=== PATIENT | female | born 1950 | race Caucasian/White ===

== ENCOUNTER 2016-09-21 08:43 | Outpatient (CLI) | payer OTHER ==
[2016-09-21] MEDS ORDERED: NALOXONE HCL 0.4 MG/ML INJ ONE (08:53)
[2016-09-21] MEDS ORDERED: PROMETHAZINE HCL 25 MG/ML INJ ONE (08:53)
[2016-09-21] MEDS ORDERED: MIDAZOLAM 2 MG/2 ML VIAL ONE (08:53)
[2016-09-21] MEDS ORDERED: FLUMAZENIL 0.5 MG/5 ML MDV IVP ONE (08:53)
[2016-09-21] MEDS ORDERED: fentaNYL 100 MCG/2 ML INJ ONE (08:54)
[2016-09-21] MEDS ORDERED: NA BICARBONATE 50 MEQ/50 ML VIAL ONE (09:07)
[2016-09-21] MEDS ORDERED: LIDOCAINE 1% 30 ML SDV ONE (09:07)
[2016-09-21 09:50] LABS: % IMMATURE GRANULYOCYTES 0.2 % (0.0-1.1); ABSOLUTE IMMATURE GRANULOCYTES 0.01 10^3/uL (0.00-0.10); ADD DIFF? NO; ADD MORPH? NO; ADD SCAN? NO; ATYPICAL LYMPHOCYTE FLAG 0 (0-99); FRAGMENT RBC FLAG 0 (0-99); HEMOGLOBIN 13.1 g/dL (12.6-16.3); LEFT SHIFT FLG 0 (0-99); LIPEMIA HEMOLYSIS FLAG 90 (0-99); MEAN CELL HEMOGLOBIN 31.9 pg (27.9-34.1); MEAN CELL HEMOGLOBIN CONCENTR. 34.5 g/dL (32.4-36.7); MEAN CELL VOLUME 92.5 fL (81.5-99.8); MEAN PLATELET VOLUME 10.1 fL (8.7-11.7); PLATELET CLUMPS FLAG 0 (0-99); PLATELET COUNT 213 10^3/uL (150-400); RED BLOOD CELL COUNT 4.11 10^6/uL (4.18-5.33); RED CELL DISTRIBUTION WIDTH 13.8 % (11.5-15.2)
[2016-09-21 09:59] LABS: INR 1.02 (0.83-1.16); PROTIME(PATIENT) 13.3 SEC (12.0-15.0)
[2016-09-21 10:00] LABS: APTT 31.4 SEC (23.0-38.0)
[2016-09-21 10:02] LABS: ALANINE AMINOTRANSFERASE 31 IU/L (9-52); ALKALINE PHOSPHATASE 37 IU/L (38-126); ANION GAP 11 mEq/L (8-16); ASPARTATE AMINOTRANSFERASE 19 IU/L (14-46); BILIRUBIN,TOTAL 1.9 mg/dL (0.1-1.4); CALCIUM 9.9 mg/dL (8.5-10.4); CARBON DIOXIDE 23 mEq/l (22-31); CHLORIDE 108 mEq/L (97-110); CREATININE 1.5 mg/dL (0.6-1.0); GLOMERULAR FILTRATION RATE 35; GLUCOSE 89 mg/dL (70-100); POTASSIUM 4.3 mEq/L (3.5-5.2); SODIUM 142 mEq/L (134-144); TOTAL PROTEIN 7.2 g/dL (6.3-8.2)
--- NOTE | 2016-09-21 11:50 | US ---
Ultrasound Guided Renal Transplant Biopsy 1038 hours History: Rising creatinine. History of renal transplant. Crosscutting Measure #226: Current tobacco user: no. Technique: Witnessed Consent: Witnessed informed consent was obtained after the risks, benefits, and alternativ es of ultrasound-guided renal transplant biopsy were explained to the patient and all questions were answered. The lower pole right lower quadrant transplant kidney was localized with ultrasound imaging. Consciou s sedation was utilized with a total of 0.5 mg of Versed and 75 mcg of fentanyl over 8 minutes (1056- 1104 hours). Following local anesthesia with 1% lidocaine, a 17-gauge coaxial needle was advanced wit h ultrasound guidance lower pole right lower quadrant transplant kidney. Following confirmation of go od position of the needle tip along the periphery of the mass, four 18-gauge core biopsy samples were obtained and submitted in formalin and Jhony's solution to pathology. The patient tolerated the pro cedure well. No immediate complications occurred. Impression: Successful ultrasound-guided core biopsy of lower pole right lower quadrant transplant ki dney renal parenchyma with specimens submitted in formalin and Jhony's solution to Pathology.
[2016-09-21] MEDS ORDERED: BACLOFEN 10 MG TAB PO ONE (12:30)
[2016-09-21 13:18] LABS: HEMATOCRIT 34.9 % (38.0-47.0); HEMOGLOBIN 12.1 g/dL (12.6-16.3)
[2016-09-21] MEDS ORDERED: ACETAMINOPHEN 325 MG TAB ONE (15:10)
[2016-09-21 15:12] LABS: HEMATOCRIT 35.5 % (38.0-47.0); HEMOGLOBIN 12.4 g/dL (12.6-16.3)
[2016-09-21 17:22] LABS: HEMATOCRIT 35.3 % (38.0-47.0); HEMOGLOBIN 12.2 g/dL (12.6-16.3)
== END 2016-09-21 17:30 | disposition home or self-care (01) ==
LOC: FIMAGING 08:43
PROVIDERS: ATTEND Internal Medicine Nephrology
PROC: 0TB03ZX Excision of Right Kidney, Percutaneous Approach, Diagnostic (ICD-10-PCS; principal; 2016-09-21 11:27)
DX: Z94.0 Kidney transplant status (principal)
CPT/HCPCS: 50200; 76942; 88305; 99152; 99513; J2250; J3010; 88313-90; 88346-90; 88348-90; J2310; J2550

== ENCOUNTER → 2017-08-02 | Outpatient (CLI) | payer OTHER | LOC: BHFA 16:00 | PROVIDERS: ATTEND Internal Medicine Cardiovascular Disease | DX: I49.3 Ventricular premature depolarization (principal) ==

== ENCOUNTER → 2017-08-20 | Outpatient (CLI) | payer OTHER | LOC: BHFA 16:15 | PROVIDERS: ATTEND Internal Medicine Cardiovascular Disease | DX: R00.2 Palpitations (principal) ==

== ENCOUNTER 2017-11-27 19:45 | Emergency (ER) | payer OTHER ==
[2017-11-27] MEDS ORDERED: ACETAMINOPHEN 325 MG TAB PO ONE (20:14)
--- NOTE | 2017-11-27 20:56 | EDPHY ---
H & P Time Seen by Provider: 11/27/17 20:07 HPI/ROS: This patient reports pain to the right wrist primarily at the base of the 1st metacarpal/the thumb carpal metacarpal joint with associated mild swelling. She denies any acute trauma except for striking it up against a solid object inadvertently 6-8 weeks ago. She reports that symptoms seem to improve and resolve prior to the onset of pain over the past week. She does work a lot on the keyboard and she notes some increased pain while typing on her computer at home. She reports the pain is currently 6/10 intensity in achy in nature. She has taken Tylenol with partial improvement previously but has not taken any in the last several hours. No other exacerbating factors noted. ROS: Constitutional: No fevers. Musculoskeletal: No other joint pain at this time Integumentary: No associated skin rash. Neuro: No numbness or tingling the affected thumb. 5 point ROS is otherwise negative. Past Medical/Surgical History: Kidney failure with renal transplant GERD Hypertension Smoking Status: Never smoked Physical Exam: Physical Exam Vital signs are normal. General: No acute distress Eyes: Pupils equal and react to light. Extraocular motions are intact. Lungs: No respiratory distress. Cardiac: Brisk capillary refill is intact throughout. Pulses are 2+ and symmetric in the affected extremity. Extremities: Atraumatic normal except for right thumb Right thumb: Patient has pain mild swelling and tenderness at the 1st carpal metacarpal joint region. No anatomical snuffbox tenderness. No tenderness or swelling to the volar or dorsal aspect of the wrist over the ulnar styloid. Azucena test is negative Skin: No rash or pallor. No erythema overlying the affected area Neuro: Alert with no sensorimotor deficits in the affected thumb Osteoarthritis, subacute fracture, tendinitis, gout, pseudogout Constitutional: Initial Vital Signs Temperature (C) 36.6 C 11/27/17 19:56 Heart Rate 76 11/27/17 19:56 Respiratory Rate 16 11/27/17 19:56 Blood Pressure 133/87 H 11/27/17 19:56 O2 Sat (%) 99 11/27/17 19:56 O2 Delivery Mode Room Air Allergies/Adverse Reactions: oxycodone HCl [From Percocet] Allergy (Severe, Verified 11/27/17 19:51) Itching gluten [Gluten] Allergy (Intermediate, Verified 11/27/17 19:51) Congestion codeine [Codeine] Allergy (Verified 11/27/17 19:51) Vomiting ENVIRONMENTAL Allergy (Intermediate, Uncoded 02/26/15 19:10) Other-Enter Comments Home Medications: Medication Instructions Recorded Aspirin [Aspirin 325 mg (OTC)] 325 mg PO DAILY 03/16/12 Famotidine [Pepcid 10mg] 10 mg PO DAILY 03/16/12 Lisinopril [Zestril 10 mg (RX)] 10 mg PO BID 03/16/12 Multiple Supplements 03/16/12 Progesterone [First-Progesterone 50 mg VG 03/16/12 Vgs 50] TRAMADOL HCL [Ultram ER 300mg] 300 mg PO 03/16/12 Tacrolimus [Prograf] 1 mg PO Q12H 03/16/12 predniSONE 5 mg PO 03/16/12 Baclofen 09/18/16 Lidocaine 5% [Lidoderm 5% Patch] 09/18/16 MDM/Departure - MDM Diagnostics: Wrist x-ray: Degenerative arthritis at the 1st carpometacarpal joint by my interpretation Imaging: I viewed and interpreted images myself Medications Given: Discontinued Medications Acetaminophen (Tylenol) 975 mg PO EDNOW ONE Stop: 11/27/17 20:15 Last Admin: 11/27/17 20:28 Dose: 975 mg ED Course/Re-evaluation: Patient is placed in a Velcro thumb spica splint. She treated with Tylenol. I counseled regarding degenerative arthrosis. Will refer her to Orthopedics encouraged her to wear the thumb spica splint and limit activity with the affected thumb and use ice as well as her Tylenol. She understands need to return emergency department should she develop worsening symptoms despite the treatment plan. - Depart Disposition: Home, Routine, Self-Care Clinical Impression: Osteoarthritis of right thumb Condition: Good Instructions: Osteoarthritis (ED) Additional Instructions: Diagnosis: Osteoarthritis of thumb. Plan: Tylenol Ice Thumb spica splint wear until swelling diminishes. Call up with her primary care physician. Consider follow up with orthopedic physician if not improving with treatment plan. Referrals: Pauline Miranda MD [Primary Care Provider] - As per Instructions Doe Pritchett MD [Medical Doctor] - As per Instructions
[2017-11-27 21:33] VITALS: BP 143/82
== END 2017-11-27 21:33 | disposition home or self-care (01) ==
LOC: CED 19:45
DX: M18.9 Osteoarthritis of first carpometacarpal joint, unspecified (principal); I10 Essential (primary) hypertension; Z79.82 Long term (current) use of aspirin
CPT/HCPCS: 73110-PO

== ENCOUNTER → 2018-04-11 | Outpatient (CLI) | payer OTHER | LOC: FIMAGING 14:22 | PROVIDERS: ATTEND Internal Medicine Nephrology | DX: Z13.820 Encounter for screening for osteoporosis (principal); M81.0 Age-related osteoporosis without current pathological fracture; Z78.0 Asymptomatic menopausal state; Z91.81 History of falling; E03.9 Hypothyroidism, unspecified; Z79.52 Long term (current) use of systemic steroids; Z79.890 Hormone replacement therapy ==

== ENCOUNTER → 2018-04-28 | Outpatient (CLI) | payer OTHER | LOC: SUPIMAGING 17:14 | PROVIDERS: ATTEND Registered Nurse | DX: J98.09 Other diseases of bronchus, not elsewhere classified (principal); M41.85 Other forms of scoliosis, thoracolumbar region | CPT/HCPCS: 71046-PN ==

== ENCOUNTER → 2018-12-04 | Outpatient (CLI) | payer OTHER | LOC: BHFA 16:00 | PROVIDERS: ATTEND Internal Medicine Cardiovascular Disease | DX: I49.3 Ventricular premature depolarization (principal) ==